=== PATIENT | female | born 1985 | race Hispanic/Latino ===

== ENCOUNTER 2019-01-16 21:03 | Emergency (ER) | payer SELFPAY ==
[2019-01-16 21:03] VITALS: BMI 36.7
[2019-01-16 21:18] VITALS: RESP 18
[2019-01-16] MEDS ORDERED: Sodium Chloride 0.9% 1,000 ML IV ONE (21:20)
[2019-01-16 21:59] LABS: BASO # 0.1 K/uL (0.0-0.2); BASO % 0.8 % (0.0-2.0); EOS # 0.2 K/uL (0.0-0.7); EOS % 2.5 % (0.0-4.0); HEMOGLOBIN 12.4 g/dL (11.0-16.0); LYMPH # 2.5 K/uL (1.0-4.3); LYMPH % 28.7 % (20.0-40.0); MEAN CORPUSCULAR HEMOGLOBIN 26.8 pg (27.0-31.0); MEAN CORPUSCULAR HGB CONC 32.4 g/dL (33.0-37.0); MEAN PLATELET VOLUME 9.8 fL (7.2-11.7); MONO # 0.6 K/uL (0.0-0.8); MONO % 6.5 % (0.0-10.0); NEUT # 5.3 K/uL (1.8-7.0); NEUT % 61.5 % (50.0-75.0); RBC 4.6 Mil/uL (3.80-5.20); WHITE BLOOD COUNT 8.6 K/uL (4.8-10.8)
[2019-01-16] MEDS ORDERED: Sodium Chloride 0.9% 1,000 ML ONE (21:59)
[2019-01-16 22:02] LABS: MEAN CELL VOLUME 82.8 fL (81.0-99.0)
[2019-01-16 22:03] LABS: SQUAMOUS EPITHIAL 7 /hpf (0-5); URINE BACTERIA RARE (<OCC)
[2019-01-16 22:12] LABS: PH,URINE 6.5 (5.0-8.0); URINE BILIRUBIN SMALL (NEGATIVE); URINE BLOOD NEGATIVE (NEGATIVE); URINE CLARITY CLEAR (Clear); URINE COLOR YELLOW (YELLOW); URINE GLUCOSE (UA) NEGATIVE (Normal); URINE LEUKOCYTE ESTERASE NEG Leu/uL (Negative); URINE PROTEIN NEGATIVE (NEGATIVE); URINE UROBILINOGEN 0.2 mg/dL (0.2-1.0)
[2019-01-16 22:18] LABS: ALB/GLOB RATIO 1.3 (1.0-2.1); ALBUMIN 4.1 g/dL (3.5-5.0); ALT/SGPT 7 U/L (9-52); AST/SGOT 16 U/L (14-36); BLOOD UREA NITROGEN 17 mg/dL (7-17); CALCIUM 9.6 mg/dl (8.6-10.4); GFR NON-AFRICAN AMERICAN > 60; LIPASE 27 U/L (23-300)
--- NOTE | 2019-01-16 23:05 | C.PDOC ---
History Of Present Illness 33 year old female presents to the ED c/o epigastric abdominal pain for the past week. Patient denies fever, chills, nausea, vomit, diarrhea, constipation, rash, dysuria, hematuria, change in food, recent travel. Time Seen by Provider: 01/16/19 21:20 Chief Complaint (Nursing): Abdominal Pain History Per: Patient History/Exam Limitations: no limitations Onset/Duration Of Symptoms: Days Current Symptoms Are (Timing): Still Present Location Of Pain/Discomfort: Epigastric Quality Of Discomfort: "Pain" Associated Symptoms: denies: Nausea, Vomiting, Diarrhea, Constipation, Urinary Symptoms Recent travel outside of the [place]: No Additional History Per: Patient Abnormal Vaginal Bleeding: No Past Medical History Reviewed: Historical Data, Nursing Documentation, Vital Signs Vital Signs: Last Vital Signs Temp 98.1 F 01/16/19 21:11 Pulse 66 01/16/19 21:11 Resp 18 01/16/19 21:11 BP 129/86 01/16/19 21:11 Pulse Ox 99 01/16/19 21:11 - Medical History PMH: Anemia Denies: Chronic Kidney Disease Surgical History: No Surg Hx - [facility] Procedures EXTRACTION OF POC, LOW CERVICAL, OPEN APPROACH (03/11/17) MONITORING OF POC, CARDIAC RATE, STEAM FLATTENER APPROACH (03/11/17) Family History: States: Unknown Family Hx - Social History Hx Alcohol Use: Yes Hx Substance Use: No - Immunization History Hx Tetanus Toxoid Vaccination: No Hx Influenza Vaccination: No Hx Pneumococcal Vaccination: No Review Of Systems Constitutional: Negative for: Fever, Chills Cardiovascular: Negative for: Chest Pain Respiratory: Negative for: Shortness of Breath Gastrointestinal: Positive for: Abdominal Pain. Negative for: Nausea, Vomiting, Diarrhea Genitourinary: Negative for: Dysuria, Hematuria Musculoskeletal: Negative for: Back Pain Skin: Negative for: Rash Neurological: Negative for: Weakness, Numbness Physical Exam - Physical Exam Appears: Non-toxic, No Acute Distress Skin: Normal Color, Warm, Dry Head: Atraumatic, Normacephalic Eye(s): bilateral: Normal Inspection Oral Mucosa: Moist Neck: Normal ROM, Supple Chest: Symmetrical Cardiovascular: Rhythm Regular Respiratory: Normal Breath Sounds, No Rales, No Rhonchi, No Wheezing Gastrointestinal/Abdominal: Soft, Tenderness (mild epigastric), No Guarding, No Rebound Back: No CVA Tenderness Extremity: Normal ROM, No Tenderness, No Swelling Neurological/Psych: Oriented x3, Normal Speech, Normal Cognition Gait: Steady ED Course And Treatment - Laboratory Results Result Diagrams: 01/16/19 21:55 01/16/19 21:55 Lab Results: Total Bilirubin 0.2 mg/dL (0.2-1.3) 01/16/19 21:55 AST 16 U/L (14-36) 01/16/19 21:55 ALT 7 U/L (9-52) L 01/16/19 21:55 Alkaline Phosphatase 57 U/L (38-126) 01/16/19 21:55 Total Protein 7.2 g/dL (6.3-8.3) 01/16/19 21: Albumin 4.1 g/dL (3.5-5.0) 01/16/19 21:55 Globulin 3.1 gm/dL (2.2-3.9) 01/16/19 21: Albumin/Globulin Ratio 1.3 (1.0-2.1) 01/16/19 21:55 Lipase 27 U/L (23-300) 01/16/19 21:55 Urine Color Yellow (YELLOW) 01/16/19 21:55 Urine Clarity Clear (Clear) 01/16/19 21:55 Urine pH 6.5 (5.0-8.0) 01/16/19 21:55 Ur Specific [place] 1.030 (1.003-1.030) 01/16/19 21:55 Urine Protein Negative mg/dL (NEGATIVE) 01/16/19 21:55 Urine Glucose (UA) Negative mg/dL (Normal) 01/16/19 21:55 Urine Ketones Trace mg/dL (NEGATIVE) 01/16/19 21:55 Urine Blood Negative (NEGATIVE) 01/16/19 21:55 Urine Nitrate Negative (NEGATIVE) 01/16/19 21:55 Urine Bilirubin Small (NEGATIVE) 01/16/19 21:55 Urine Urobilinogen 0.2 mg/dL (0.2-1.0) 01/16/19 21:55 Ur Leukocyte Esterase Neg Peri/uL (Negative) 01/16/19 21:55 Urine WBC (Auto) 2 /hpf (0-5) 01/16/19 21:55 Urine RBC (Auto) 1 /hpf (0-3) 01/16/19 21:55 Ur Squamous Epith Cells 7 /hpf (0-5) H 01/16/19 21:55 Urine Bacteria Rare (<OCC) 01/16/19 21:55 O2 Sat by Pulse Oximetry: 99 (ON RA) Pulse Ox Interpretation: Normal - CT Scan/US CT abd/pelvis Other Rad Studies (CT/US): Read By Radiologist, Radiology Report Reviewed CT/US Interpretation: CT SCAN OF THE ABDOMEN AND PELVIS WITHOUT ORAL OR IV CONTRAST. CLINICAL INDICATION: Right flank pain. TECHNIQUE: Axial and reformatted sagittal and coronal images of the abdomen pelvis obtained without IV contrast administration. COMPARISON: None. FINDINGS: The visualized lung bases are unremarkable. Normal unenhanced liver. Normal gallbladder and extrahepatic biliary system. Normal unenhanced spleen. Normal pancreas. . Normal bilateral adrenal glands. Normal size of the right kidney. There is no right renal mass. There are no right renal calculi. There is no right hy dronephrosis. Normal visualized right ureter. Normal size of the left kidney. There is no left renal mass. There are no left renal calculi. There is no left hydronephrosis. Normal visualized left ureter. Normal visualized stomach. Normal small intestine. Normal colon. The appendix is visualized and appears normal. There is no demonstrated peritoneal fluid. Normal abdominal aorta. Normal inferior vena cava. Normal retroperitoneum. . Normal urinary bladder. There is no pelvic mass lesion or lymphadenopathy. There is no pelvic fluid. . Normal abdominal wall. Normal osseous structures. IMPRESSION: Normal unenhanced CT of the abdomen and pelvis. . Electronically signed on Jan 16, 2019 11:59:24 PM EDT by: Bob Anders M.D., Certified by ABR, MSK, Neuroradiology. Medical Decision Making Medical Decision Making: Plan: * CT abd/pelvis * Labs * IV fluids * Urine culture * UA Disposition - Disposition Disposition: HOME/ ROUTINE Disposition Time: 23:55 Condition: IMPROVED Forms: [facility] ([place]) - Clinical Impression Clinical Impression: Abdominal pain - Scribe Statement The provider has reviewed the documentation as recorded by the Scribe Kj Askew All medical record entries made by the Scribe were at my direction and personally dictated by me. I have reviewed the chart and agree that the record accurately reflects my personal performance of the history, physical exam, medical decision making, and the department course for this patient. I have also personally directed, reviewed, and agree with the discharge instructions and disposition.
[2019-01-17 00:12] VITALS: BP 110/68; PULSE 67; TEMP 98.3; O2SAT 100
--- NOTE | 2019-01-17 10:34 | CT ---
PROCEDURE: CT Abdomen and Pelvis without Oral or IV contrast. HISTORY: right sided abd. tenderness (RUQ>RLQ) COMPARISON: None available. TECHNIQUE: Contiguous axial images of the abdomen and pelvis. No oral or IV contrast administered. Coronal and Sagittal reformats generated and reviewed. Radiation dose: Total exam DLP = 839.05 mGy-cm. This CT exam was performed using one or more of the following dose reduction techniques: Automated exposure control, adjustment of the mA and/or kV according to patient size, and/or use of iterative reconstruction technique. FINDINGS: There is limited evaluation of the solid organs without the administration of IV contrast. LOWER THORAX: No visible consolidation, pleural effusion, or pneumothorax. LIVER: Unremarkable unenhanced appearance. GALLBLADDER AND BILE DUCTS: Unremarkable unenhanced appearance. PANCREAS: Unremarkable unenhanced appearance. SPLEEN: Unremarkable unenhanced appearance. ADRENALS: Unremarkable unenhanced appearance. KIDNEYS AND URETERS: No hydronephrosis or obstructing renal calculus. BLADDER: The urinary bladder appears unremarkable. REPRODUCTIVE: Mildly heterogeneous appearance of the uterus. APPENDIX: The appendix appears within normal limits of caliber. No secondary signs of acute appendicitis. BOWEL: The stomach is nondistended. Lack of oral contrast limits evaluation for bowel pathology. The bowel loops appear within normal limits of caliber without evidence of intestinal obstruction. PERITONEUM: No significant free fluid. No definite free air. LYMPH NODES: No bulky lymphadenopathy identified. VASCULATURE: No significant atherosclerotic calcifications identified. No aortic aneurysm. BONES: No acute osseous abnormality is detected. OTHER FINDINGS: None. IMPRESSION: Mildly heterogeneous appearance of the uterus; recommend follow-up ultrasound of the pelvis if indicated. Preliminary impression was provided by [facility]. Study marked for PA review.
== END 2019-01-17 00:13 | disposition home or self-care (01) ==
LOC: C.ER 21:03
DX: R10.13 Epigastric pain (principal)
CPT/HCPCS: 74176; 80053; 81001; 81025; 83690; 85025; 87086; 96360; 99284; J7030